=== PATIENT | male | born 1990 | race Caucasian/White ===

== ENCOUNTER → 2016-07-26 | Outpatient (CLI) | payer OTHER ==
[~2016-07-26] MED LIST: KETOROLAC10 MG PO
== END ==
LOC: RAD 06:52
DX: M25.561 Pain in right knee (principal); M93.851 Other specified osteochondropathies, right thigh

== ENCOUNTER 2016-08-18 20:31 | Emergency (ER) | payer OTHER ==
[~2016-08-18] VITALS: Ht 188 cm; Wt 72.7 kg
[2016-08-18 21:05] VITALS: BP 145/81
[2016-08-18] MEDS ORDERED: KETOROLAC10 MG PO (21:06)
== END 2016-08-18 21:05 | disposition home or self-care (01) ==
LOC: ED 20:31
DX: M79.661 Pain in right lower leg (principal); Z98.890 Other specified postprocedural states